=== PATIENT | female | born 1950 | race Caucasian/White ===

== ENCOUNTER 2016-06-12 19:06 | Emergency (ER) | payer OTHER, MEDICARE ==
[~2016-06-12] VITALS: Ht 165.1 cm; Wt 70.5 kg
[2016-06-12 19:33] VITALS: BP 146/81; PULSE 89; RESP 15; O2SAT 98
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
[2016-06-12] MEDS ORDERED: 0.9% Sodium Chloride 1,000 ML IV ONE (20:56)
[2016-06-12] MEDS ORDERED: Ondansetron 2 mg/mL 2 mL Inj IVPUSH ONE (21:00)
[2016-06-12 21:37] LABS: BASOPHILS % (AUTO) 0.2 % (0-3); EOSINOPHILS % (AUTO) 3.2 % (0-5); MONOCYTES % (AUTO) 6.5 % (4-12); Mean Corpuscular Volume 90.3 fL (81-100); NEUTROPHILS % (AUTO) 60.9 % (40-74); Platelet Count 217 bil/L (150-400)
[2016-06-12 21:46] LABS: INR 0.94 ratio
[2016-06-12 21:49] LABS: TROPONIN T 0.01 ug/L (0.0-0.011)
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
[2016-06-12 22:29] LABS: APPEARANCE,URINE HAZY (CLEAR,HAZY); COLOR,URINE STRAW (YELLOW); OCCULT BLOOD,URINE NEGATIVE (NEGATIVE); PH,URINE 5.5 (5.0-8.0); UROBILINOGEN,URINE NORMAL (NORMAL)
[2016-06-12] MEDS ORDERED: METH500T PO (23:13)
[2016-06-12 23:46] VITALS: BP 115/64; PULSE 87; RESP 18; O2SAT 96
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
--- NOTE | 2016-06-14 10:51 | DRSVH ---
CORRECTED ACCESSION/PLACER NUMBER ON 06/14/16 PROCEDURE: X-RAY LEFT ELBOW, TWO VIEWS ([id number]) INDICATIONS: PAIN TECHNIQUE: 2 views of the elbow were acquired. COMPARISON: None. FINDINGS: Bones: No definite fractures or dislocations. No suspicious bony lesions. Soft tissues: No elbow joint effusion. There is soft tissue swelling posterior and dorsal to the ol ecranon. IMPRESSION: 1. Posterior soft tissue swelling without definite fracture or dislocation. Dictated by: Waldo Limon M.D. on 06/12/2016 at 21:52 Approved by: Waldo Limon M.D. on 06/12/2016 at 21:53
--- NOTE | 2016-06-14 10:52 | DRSVH ---
CORRECTED ACCESSION/PLACER NUMBER ON 06/14/16 PROCEDURE: X-RAY PELVIS, ONE OR TWO VIEWS ([id number]) INDICATIONS: PAIN TECHNIQUE: Single view of the pelvis acquired. COMPARISON: None. FINDINGS: Bones: No fractures or dislocations. No suspicious bony lesions. Soft tissues: Visualized bowel gas pattern is normal. No suspicious soft tissue calcifications. IMPRESSION: 1. No fracture or dislocation. Dictated by: Waldo Limon M.D. on 06/12/2016 at 21:48 Approved by: Waldo Limon M.D. on 06/12/2016 at 21:51
== END 2016-06-12 23:51 | disposition home or self-care (01) ==
LOC: SED 19:06
DX: S40.022A Contusion of left upper arm, initial encounter (principal); S30.1XXA Contusion of abdominal wall, initial encounter; S50.312A Abrasion of left elbow, initial encounter; V49.50XA Passenger injured in collision with unspecified motor vehicles in traffic accident, initial encounter; Y93.89 Activity, other specified; Y92.410 Unspecified street and highway as the place of occurrence of the external cause; Y99.8 Other external cause status; E11.9 Type 2 diabetes mellitus without complications
CPT/HCPCS: 36415; 71010; 71260; 72170; 73070; 74177; 80053; 81001; 84484; 85025; 85610; 85730; 86850; 93005; 96361; 96374; 99285; J2405; J7030; Q9967